=== PATIENT | female | born 1950 | race Native Hawaiian/Other Pacific Islander ===

== ENCOUNTER 2019-01-25 11:41 | Outpatient (CLI) | payer OTHER ==
[2019-01-25 13:37] LABS: PLATELET COUNT 280 K/uL (152-353)
[2019-01-25 13:53] LABS: POTASSIUM 4.8 mmol/L (3.6-5.2)
== END 2019-01-25 20:18 | disposition home or self-care (01) ==
LOC: LAB 11:41
PROVIDERS: Physician Assistant Medical
DX: D50.8 Other iron deficiency anemias (principal); J44.9 Chronic obstructive pulmonary disease, unspecified; I50.9 Heart failure, unspecified
CPT/HCPCS: 80048; 82728; 85027

== ENCOUNTER 2019-05-29 11:39 | Outpatient (CLI) | payer OTHER ==
[2019-05-29 12:21] LABS: POTASSIUM 5.4 mmol/L (3.6-5.2); SODIUM 136 mmol/L (136-145)
[2019-05-29 12:27] LABS: PLATELET COUNT 330 K/uL (152-353)
== END 2019-05-29 22:26 | disposition home or self-care (01) ==
LOC: LAB 11:39
PROVIDERS: Internal Medicine
DX: E11.65 Type 2 diabetes mellitus with hyperglycemia (principal); I10 Essential (primary) hypertension; E78.49 Other hyperlipidemia
CPT/HCPCS: 80053; 80061; 82043; 82570; 83036; 85027